=== PATIENT | female | born 1990 | race Caucasian/White ===

== ENCOUNTER 2024-02-20 14:54 | Outpatient (CLI) | payer OTHER, SELFPAY ==
--- NOTE | ~2024-02-20 | MR_ITS ---
EXAMINATION: MR foot LT wo/w con DATE: 02/20/2024 15:51 INDICATION: Metatarsalgia TECHNIQUE: Magnetic resonance imaging (MRI) of the left fore/mid foot was performed without intraveno us contrast. Sequences included axial, sagittal and coronal T1-weighted FSE, sagittal fluid sensitive FSE STIR, coronal PD-weighted FS FSE, coronal T1-weighted FSE, axial T1-weighted FS FSE, and postcon trast axial, sagittal and coronal T1-weighted FS FSE. A marker was placed at the site of maximal pain along the dorsal/medial aspect of the second proximal phalanx. COMPARISON: None FINDINGS: Bone alignment is normal. Nonspecific small region of focal marrow edema and enhancement without loss of T1 fat signal or evident cortical erosion at the dorsal head of the fifth metatarsal. Marrow sign al is otherwise unremarkable throughout. No fracture or pathologic marrow replacing process. 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 No joint effusions, tenosynovitis or other abnormal fluid collections. Visuali zed portions of the flexor and extensor tendons are normal. The Lisfranc ligament complex as well as the collateral ligament complex at the metatarsophalangeal and interphalangeal joints are normal. Int rinsic musculature of the visualized foot is unremarkable. No abnormally enhancing soft tissue lesion s identified. IMPRESSION: 1. Small region of nonspecific mild increased marrow T2 signal and enhancement at the dorsal head of the fifth metatarsal but without evident loss of T1 fat signal to suggest osteomyelitis or other path ologic marrow replacing process. This is of indeterminate etiology or significance. Consider correlat ion with plain radiographs. 2. 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 Reviewed, dictated and finalized at location B. [employer] IMPRESSION: 1. Small region of nonspecific mild increased marrow T2 signal and enhancement at the dorsal head of the fifth metatarsal but without evident loss of T1 fat s ignal to suggest osteomyelitis or other pathologic marrow replacing process. Th is is of indeterminate etiology or significance. Consider correlation with plai n radiographs. 2. 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
== END 2024-02-20 14:55 | disposition home or self-care (01) ==
LOC: MICIMG 14:55
PROVIDERS: PCP Pediatrics; Visit Provider Podiatrist Foot & Ankle Surgery
DX: M77.42 Metatarsalgia, left foot (principal); G57.82 Other specified mononeuropathies of left lower limb; M19.072 Primary osteoarthritis, left ankle and foot
CPT/HCPCS: 73720; A9577